=== PATIENT | female | born 1970 | race Caucasian/White ===

== ENCOUNTER → 2017-08-20 | Day surgery (SDC) | payer OTHER ==
--- NOTE | 2017-08-23 19:55 | OP ---
DATE OF OPERATION: 08/20/2017 PREOPERATIVE DIAGNOSIS: Left breast mass, 12 o'clock, 4 cm from the nipple. POSTOPERATIVE DIAGNOSIS: Left breast mass, 12 o'clock, 4 cm from the nipple. PROCEDURE: Left ultrasound-guided core biopsy with clip placement. ANESTHESIA: Local. ATTENDING SURGEON: Ehsan Tolentino MD ESTIMATED BLOOD LOSS: Minimal. COMPLICATIONS: None. DESCRIPTION OF PROCEDURE: Patient was made aware of the risks and benefits of the procedure and consented. She was placed in supine position. Under sterile conditions with 1% lidocaine for local anesthesia, a small gela was made in the skin. Using a 10-gauge suction biopsy device via inferolateral approach under ultrasound guidance, multiple cores were obtained and submitted to Pathology. Likewise, under ultrasound guidance, a U-shaped clip was placed into the biopsy region. Patient tolerated the procedure well. Steri-Strips and a sterile bandage were applied. We will contact her with the results. EHSAN TOLENTINO M.D. [id number]
--- NOTE | 2017-08-24 16:01 | PATH ---
Surgical Pathology Report Patient Name: MARTIN KNAPP [facility]. Rec. #: [id number] /Age/Gender: 1970 (Age: 47) / F Account: [id number] Location: [facility] RADIOLOGY U Taken: 08/20/2017 Received: 08/20/2017 Reported: 08/24/2017 Physicians: Karely West M.D. Specimen(s) Received LEFT BREAST 12:00, 4CM FN CORE BIOPSY Clinical History Nonpalpable lesion Ultrasound findings: Suspicious Final Diagnosis BREAST, LEFT, 12:00, 4 CM FN, CORE BIOPSY: INTRADUCTAL PAPILLOMA WITH ATYPIA. ATYPICAL DUCTAL HYPERPLASIA (ADH). Electronically Signed Sahra Eldridge M.D. Gross Description Received in formalin labeled "left breast 12:00, 4cmfn," is a 2.1 x 2.0 x 0.3 cm aggregate of multiple gross-yellow, irregular to cylindrical portions of fibroadipose tissue admixed with blood clot. The formalin is filtered and the specimen is entirely submitted in one cassette. Time to formalin fixation: < 1 minute Total formalin fixation time: Approximately 77 hours. /08/23/2017 saudi08/23/2017
== END | disposition home or self-care (01) ==
LOC: FRADUS-SUR 12:38
PROVIDERS: ATTEND Surgery
PROC: 0HBU3ZX Excision of Left Breast, Percutaneous Approach, Diagnostic (ICD-10-PCS; principal; 2017-08-20)
DX: D24.2 Benign neoplasm of left breast (principal); N63.20 Unspecified lump in the left breast, unspecified quadrant; N60.92 Unspecified benign mammary dysplasia of left breast
CPT/HCPCS: 19083; 87899; 88305-TC; A4648

== ENCOUNTER 2017-09-16 07:06 | Day surgery (SDC) | payer OTHER ==
[2017-09-09 14:39] VITALS: BMI 23.1
--- NOTE | 2017-09-13 11:42 | HP ---
Admitting History and Physical - Primary Care Physician PCP: aKryn Khan - Admission Chief Complaint: Left breast atypia History of Present Illness: 47 year old premenapausal female mammogram 07/2017 showing dense breasts . US showed bilateral cysts and 7mm left breast lobule at 12:00 N4. US core bx left breast at 12:00 08/20/2017 showed papilloma and ADH. History Source: Patient Limitations to Obtaining History: No Limitations - Past Medical History ...LMP: 08/19/17 ...: No Psych: Yes: Anxiety - Smoking History Smoking history: Never smoked Have you smoked in the past 12 months: No - Alcohol/Substance Use Hx Alcohol Use: Yes (SOCIALLY) Home Medications - Allergies Allergies/Adverse Reactions: Allergies Allergy/AdvReac Type Severity Reaction Status Date / Time No Known Drug Allergies Allergy Verified 09/09/17 14:28 - Home Medications Home Medications: Ambulatory Orders Alprazolam [Xanax] 0.5 mg PO ASDIR PRN 09/09/17 Calcium Carb/Vitamin D3/Vit K1 [Calcium + D Soft Chewable Tab] 1 each PO DAILY 09/09/17 Cholecalciferol (Vitamin D3) [Vitamin D3] 1,000 unit PO DAILY 09/09/17 Ferrous Sulfate [Slow Release Iron] 65 mg PO DAILY 09/09/17 Norethindrone-E.estradiol-Iron [Lo Loestrin Fe 1-10 Tablet] 1 tab PO DAILY 09/09 Family Disease History - Family Disease History Family Disease History: CA: Mother (ovarian ca 66) Other Family History: pat cousin breast ca Physical Examination Constitutional: Yes: Well Nourished Breast(s): Yes: Other (no palpable densities or adenopathy bilaterally . post bx changes left breast at 12:00) Problem List - Problems (1) Atypical ductal hyperplasia of left breast Code(s): N60.92 - UNSPECIFIED BENIGN MAMMARY DYSPLASIA OF LEFT BREAST Assessment/Plan Left breast wide excision with mammogram needle localization
[2017-09-16] MEDS ORDERED: BUPIVACAINE HCL/PF 2.5 MG/ML - 30 ML VIAL IJ ONE (07:58)
[2017-09-16] MEDS ORDERED: LIDOCAINE HCL 1%, 10 MG/ML (20ML VIAL) ONE (07:58)
[2017-09-16] MEDS ORDERED: ISOSULFAN BLUE 10 MG/ML VIAL SQ ONE (07:58)
[2017-09-16] MEDS ORDERED: KETOROLAC TROMETHAMINE 30 MG/1 ML VIAL IVPUSH PRN (09:44)
[2017-09-16] MEDS ORDERED: ONDANSETRON 4 MG/2 ML VIAL IVPUSH PRN ×2 (09:44→10:48)
[2017-09-16] MEDS ORDERED: MIDAZOLAM HCL 2 MG/2 ML SINGLE DOSE VIAL ONE ×2 (09:45)
[2017-09-16] MEDS ORDERED: DEXTROSE 5%-0.45% SALINE 1,000 ML IV SCH (09:45)
[2017-09-16] MEDS ORDERED: PROPOFOL 20 ML ONE ×4 (09:45→11:06)
[2017-09-16] MEDS ORDERED: ONDANSETRON 4 MG/2 ML VIAL ONE ×2 (10:06→11:53)
[2017-09-16] MEDS ORDERED: DEXAMETHASONE SOD PHOSPHATE 4 MG/1 ML VIAL ONE (10:06)
[2017-09-16] MEDS ORDERED: PROMETHAZINE HCL 25 MG/1 ML VIAL IVPUSH PRN (10:48)
[2017-09-16] MEDS ORDERED: oxyCODONE HCL 5 MG TABLET PO PRN (10:48)
[2017-09-16] MEDS ORDERED: LACTATED RINGERS SOLUTION 1,000 ML IV SCH (11:00)
[2017-09-16] MEDS ORDERED: KETOROLAC TROMETHAMINE 30 MG/1 ML VIAL ONE (11:42)
[2017-09-16] MEDS ORDERED: KETOROLAC TROMETHAMINE 30 MG/1 ML VIAL IVPUSH ONE (11:45)
[2017-09-16] MEDS ORDERED: ONDANSETRON 4 MG/2 ML VIAL IVPUSH ONE (11:59)
[2017-09-16 12:55] VITALS: TEMP 99
[2017-09-16] MEDS ORDERED: oxyCODONE HCL 5 MG TABLET ONE (12:59)
[2017-09-16 14:02] VITALS: BP 96/62; PULSE 66
--- NOTE | 2017-09-17 14:31 | PATH ---
Surgical Pathology Report Patient Name: MARTIN KNAPP [facility]. Rec. #: [id number] /Age/Gender: 1970 (Age: 47) / F Account: [id number] Location: [facility] AMBULATORY Taken: 09/16/2017 Received: 09/16/2017 Reported: 09/17/2017 Physicians: Karyn Khan M.D. Specimen(s) Received A: LEFT BREAST WIDE EXCISION B: LEFT BREAST SUPERIOR MARGIN C: LEFT BREAST INFERIOR MARGIN Clinical History Ultrasound findings: Suspicious Final Diagnosis A. LEFT BREAST, WIDE EXCISION FOR LOCALIZATION: ATYPICAL DUCTAL HYPERPLASIA (ADH), COLUMNAR CELL ATYPIA, AND ATYPICAL ADENOSIS ARISING IN A BACKGROUND OF FIBROCYSTIC CHANGES INCLUDING USUAL DUCTAL HYPERPLASIA, COLUMNAR CELL CHANGE, STROMAL FIBROSIS, DUCTAL DILATATION, CYSTIC APOCRINE METAPLASIA, AND ASSOCIATED CALCIFICATION. NO CARCINOMA IDENTIFIED. PRIOR BIOPSY SITE PRESENT. SMALL RADIAL SCAR/COMPLEX SCLEROSING LESION AND SMALL FIBROADENOMA PRESENT. B. LEFT BREAST, SUPERIOR MARGIN, EXCISION: FOCAL ATYPICAL DUCTAL HYPERPLASIA (ADH), ARISING IN A BACKGROUND OF FIBROCYSTIC CHANGES INCLUDING ADENOSIS, STROMAL FIBROSIS, AND DUCTAL DILATATION. C. LEFT BREAST, INFERIOR MARGIN, EXCISION: SMALL RADIAL SCAR/COMPLEX SCLEROSING LESION ARISING IN A BACKGROUND OF FIBROCYSTIC CHANGES INCLUDING USUAL DUCTAL HYPERPLASIA, COLUMNAR CELL CHANGE, STROMAL FIBROSIS, DUCTAL DILATATION, AND CYSTIC APOCRINE METAPLASIA. Comment: Also see prior specimen [id number]. Electronically Signed Shahzad Guillermo M.D. Gross Description A. Received in formalin, labeled "left breast wide excision," is a 5.0 x 3.3 x 2.0 cm. gross-yellow, irregular, portion of fibroadipose tissue. There is a needle localization wire separately received within the same container which appears to have detached from the specimen. There is a short suture marking the superior aspect and a long suture marking the lateral aspect, per the surgeon. There is no skin or nipple present. The specimen is inked as follows: superior and lateral blue; inferior green; medial yellow; anterior red; deep black. The specimen is serially sectioned from superior to inferior. Sectioning reveals diffuse dense, white, firm fibrous tissue. No definitive mass is identified. The specimen is entirely and sequentially submitted in 10 cassettes with the superior margin cassette 1 and the inferior margin in cassette 10. Time to formalin fixation: 30 minutes Total formalin fixation time: Approximately 6 hours. Lelia Received in formalin labeled "left breast superior margin," is a 2.4 x 1.6 x 0.6 cm irregular portion of fibroadipose tissue with a suture marking the biopsy cavity side, per the surgeon. The new margin is inked blue and the specimen is serially sectioned. The specimen is entirely submitted in 2 cassettes. C. Received in formalin labeled "left breast inferior margin," is a 3.3 x 1.8 x 0.4 cm irregular portion of fibroadipose tissue with a suture marking the biopsy cavity side, per the surgeon. The new margin is inked blue and the specimen is serially sectioned. The specimen is entirely submitted in 3 cassettes. 09/16/2017 [facility]09/16/2017
--- NOTE | 2017-09-17 17:52 | OP ---
DATE OF OPERATION: 09/16/2017 PREOPERATIVE DIAGNOSIS: Left breast atypia. POSTOPERATIVE DIAGNOSIS: Left breast atypia. PROCEDURE: Left breast wide excision with needle localization. SURGEON: Karyn Khan M.D. CHIEF PAYROLL CLERK: Gustavo Verdugo ANESTHESIA: MAC. ANESTHESIOLOGIST: SPECIMEN: 1. Left breast wide excision. 2. Inferior margin. 3. Superior margin. DRAINS: None. INDICATION FOR PROCEDURE: The patient is a 47-year-old woman, has an abnormal mammogram of the left breast. Biopsy showed atypia. She is recommended excision of the area. Procedure, risks, complications were discussed with her prior to surgery. DESCRIPTION OF PROCEDURE: The patient was taken to breast imaging, where she underwent localization of the clip in the left breast. She was taken to ambulatory surgery, where informed consent was obtained, and the left breast was identified with a marker. She was taken to the operating room and placed on the operating table in a supine position. Sequential compression devices were placed on both legs. She received antibiotics. Examination of the breast showed a localizing wire in the left upper outer quadrant. The skin infiltrated with IV. Skin was prepped and draped in the usual fashion. She was sedated. The skin was infiltrated with 1% lidocaine, and incision was made of the periareolar border. The incision was deepened until the breast parenchyma was encountered. The tissue around the needle was mobilized until the entire needle and tissue were from the remaining breast parenchyma. During the dissection, there was a significant amount of bleeding, which required the use of suction. The needle was disassembled, and the specimen was removed. A specimen radiograph did not show the clip. Additional tissue was removed from the inferior and superior borders of the biopsy cavity and labeled with a stitch on the biopsy cavity side. These were also radiographed, and did not show a clip. Examination of the wound cavity and the operative field as well as the sponges did not show the clip. Decision was made to terminate the procedure at this point. The wound was irrigated, and hemostasis was achieved with electrocautery. The skin was then infiltrated with 0.25% Marcaine. The dermis was closed with interrupted sutures of 3-0 Vicryl, and the skin was closed with a running subcuticular closure of 4-0 Monocryl. The wound was cleaned, and a sterile dressing and a post-surgical bra were applied. The patient was awakened and taken to the PACU in satisfactory condition. Karely [id number]
== END 2017-09-16 13:45 | disposition home or self-care (01) ==
LOC: FASU 07:06
PROVIDERS: ATTEND Surgery
PROC: 0HBU0ZZ Excision of Left Breast, Open Approach (ICD-10-PCS; principal; 2017-09-16 10:18)
DX: N60.92 Unspecified benign mammary dysplasia of left breast (principal); N60.32 Fibrosclerosis of left breast; N60.82 Other benign mammary dysplasias of left breast; N64.89 Other specified disorders of breast; N60.12 Diffuse cystic mastopathy of left breast
CPT/HCPCS: 19281; 84703; 88307-TC; 94760